=== PATIENT | male | born 1985 | race Caucasian/White ===

== ENCOUNTER 2017-10-18 08:49 | Emergency (ER) | payer OTHER ==
[~2017-10-18] VITALS: Ht 172.7 cm; Wt 94.3 kg
[~2017-10-18 08:49] MED LIST: BENTYL10 M1 PO; HYDROXYZINE HCL50 M1 PO; OMEPRAZOLE40 M1 PO; TRAMADOL HCL50 M1 PO
[2017-10-18 08:52] VITALS: BP 149/82
--- NOTE | 2017-10-18 09:21 | ED UPPER/LOWER EXTREMITY COMPL ---
History of Present Illness General Chief Complaint: Upper Extremity Problem Stated Complaint: PAIN IN BOTH SHOULDERS NO INJURY Source: patient Exam Limitations: no limitations Vital Signs & Intake/Output Vital Signs & Intake/Output Vital Signs Date Time Temp Pulse Resp B/P B/P Pulse O2 O2 Flow FiO2 Mean Ox Delivery Rate 10/18 0902 99 Room Air 10/18 0852 98.0 70 16 149/82 98 Room Air Allergies Coded Allergies: No Known Allergies (05/20/17) Reconcile Medications Dicyclomine Hydrochloride (Bentyl) 10 MG CAPSULE 1-2 CAP PO TID abd spasms Hydroxyzine Hydrochloride (Atarax) 50 MG TABLET 1 TAB PO TID PRN NAUSEA/ VOMITING (Reported) Meloxicam (Mobic) 15 MG TABLET 1 TAB PO DAILY PRN pain Methylprednisolone. (Medrol) 4 MG TAB.DS.PK 1 DP PO AD inflammation 6 on day 1 then reduce by one tablet daily until gone Omeprazole 40 MG CAPSULE.DR 1 CAP PO DAILY acid reflux Tramadol HCl 50 MG TABLET 1-2 TAB PO DAILY NEEDED PRN PAIN (Reported) Triage Note: PT COMPLAINS OF YEARS OF CHRONIC BILATERAL SHOULDER PAIN, HAS NO ORTHOPEDIC AND HAS BEEN TAKING ALEVE WITH NO RELIEF. PT STATES THAT THE PAIN IS STARTING TO GET WORSE AND THAT THERE IS NO COMFORTABLE POSITION . DECLINES MEDS AT TRIAGE Triage Nurses Notes Reviewed? yes Onset: Gradual Duration: week(s): Timing: recent history Severity: moderate Pain/Injury Location: Bilateral: Shoulder. Method of Injury: unknown HPI: 31yo male presents to ED complaining of chronic bilateral shoulder that has been present intermittently x many years. Left shoulder is worse than right. Pain is intermittent, lasts up to 8 hours, associated with weakness. Patient has taken Advil without relief. Pain is currently 6/10. This past month pain has progressively worsened. Patient reports numbness and tingling in left hand. No history of trauma or inciting event. Patient reports an onset of pain was sometime following left ulnar nerve release years ago. Past History Travel History Traveled to [place] past 21 day No Medical History Any Pertinent Medical History? 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 No Review of Systems Review of Systems Constitutional: Reports: no symptoms. EENTM: Reports: no symptoms. Respiratory: Reports: no symptoms. Cardiovascular: Reports: no symptoms. Gastrointestinal/Abdominal: Reports: no symptoms. Genitourinary: Reports: no symptoms. Musculoskeletal: Reports: see HPI. Skin: Reports: no symptoms. Neurological/Psychological: Reports: see HPI. Hematologic/Endocrine: Reports: no symptoms. Immunological: Reports: no symptoms. All Other Systems: Reviewed and Negative Physical Exam Physical Exam General Appearance: well developed/nourished, no apparent distress, alert, awake Head: atraumatic, normal appearance Eyes: Bilateral: normal appearance. Ears, Nose, Throat: hearing grossly normal Neck: normal inspection, supple, full range of motion, no midline tenderness Cardiovascular/Respiratory: no respiratory distress Peripheral Pulses: 2+ radial (R), 2+ radial (L) Back: normal inspection, normal range of motion, no vertebral tenderness, left trapezius muscle tenderness, left proximal paraspinal muscle tenderness Shoulder Left: normal range of motion, anterior and superior shoulder tenderness Shoulder Right: normal range of motion, normal inspection Elbow Left: normal range of motion, normal inspection Elbow Right: normal range of motion, normal inspection Hand Left: normal inspection, normal range of motion Hand Right: normal inspection, normal range of motion Neurologic/Tendon: normal sensation, normal motor functions, normal tendon functions Skin: intact, normal color, warm/dry Progress Differential Diagnosis: arterial insufficiency, cellulitis, contusion, DVT, fracture, septic arthritis, sprain, tendon injury, polymyositis, tendonitis Plan of Care: Orders Procedure Date/time Status HIGH SENSITIVITY CRP 10/18 957 Complete WESTERGREN SED RATE 10/18 957 Complete COMPREHENSIVE METABOLIC PANEL 10/18 957 Complete CREATINE PHOSPHOKINASE 10/18 957 Complete CBC WITHOUT DIFFERENTIAL 10/18 957 Complete Laboratory Tests 10/18/17 1005: Anion Gap 16, Estimated GFR > 60, BUN/Creatinine Ratio 11.1, Glucose 89, Calcium 9.9, Total Bilirubin 0.8, AST 44, ALT 62, Alkaline Phosphatase 62, Creatine Kinase 346 H, C-React Prot High Sens 1.9, Total Protein 8.6 H, Albumin 5.4 H, Globulin 3.2, Albumin/Globulin Ratio 1.7, CBC w Diff NO MAN DIFF REQ, RBC 5.58, MCV 83.3, MCH 28.7, MCHC 34.4, RDW 13.4, MPV 8.1, Gran % 58.4, Lymphocytes % 27.5, Monocytes % 7.4, Eosinophils % 6.4 H, Basophils % 0.3, Absolute Granulocytes 6.4, Absolute Lymphocytes 3.0, Absolute Monocytes 0.8 H, Absolute Eosinophils 0.7, Absolute Basophils 0, ESR Westergren 1 Patient with elevated CK, CRP and ESR within normal limits. There is suspicion for inflammatory muscle condition, possible myositis versus tendinitis. There is no bony tenderness to suggest bone abnormality or fracture. Patient was started on Medrol Dosepak and meloxicam for inflammation and pain. He was instructed to follow-up with primary care doctor for possible repeat labs to further assess CK. If necessary he can obtain referral for rheum versus orthopedic through primary care doctor. The patient agrees with this plan, no acute distress, patient sleeping and [place] while awaiting bloodwork results. The patient was discussed with Dr. Donaldson who agrees with this plan. Departure Departure Disposition: HOME OR SELF CARE Condition: Stable Clinical Impression Primary Impression: Muscle ache of extremity Secondary Impressions: Muscle inflammation Qualifiers: Myositis type: other type Myositis location: shoulder Laterality: left Qualified Code: M60.812 - Other myositis, left shoulder Referrals: Yevgeniy Gibson APRN (PCP/Family) Additional Instructions: Begin steroid pack today, take full steroid pack. Take meloxicam as prescribed as needed for pain and inflammation. Follow-up with your primary care doctor regarding your elevated CK until today which is a muscle enzyme was tested in your blood work. They may wish you to follow-up with a specialist such as a business analysis specialist or an orthopedic. Return to the emergency Department with any worsening symptoms or other concerns. Please note that there might be incidental findings in your evaluation that are unrelated to the current emergency department visit. Please notify your primary care doctor about this emergency department visit in order to obtain and review all of the testing performed so that these incidental findings can be monitored as needed. If you had an x-ray performed, please understand that some fractures may not be seen on the initial set of x-rays. If your symptoms persist you might need a repeat set of x-rays to check for such a fracture. If you had a laceration evaluated, please understand that foreign bodies such as glass or wood may not be visible to the naked eye or on plain x-rays. If the wound becomes red, swollen, increasingly more painful or if there is any drainage from the wound, please have it reevaluated by a physician for the possibility of a retained foreign body. If you're unable to follow up as outlined in the discharge instructions please return to the emergency department. Thank you for choosing the [facility] Emergency Department for your care. It was a pleasure to serve you today. Departure Forms: Customer Survey General Discharge Information Prescriptions: Current Visit Scripts Meloxicam (Mobic) 1 TAB PO DAILY PRN pain #15 TAB Methylprednisolone. (Medrol) 1 DP PO AD #1 DP 6 on day 1 then reduce by one tablet daily until gone
[2017-10-18 10:15] LABS: ABSOLUTE BASOPHIL COUNT 0 /CUMM (0.0-0.2); ABSOLUTE EOSINOPHIL COUNT 0.7 /CUMM (0.0-0.7); ABSOLUTE GRANULOCYTE CT 6.4 /CUMM (1.4-6.5); ABSOLUTE MONOCYTE COUNT 0.8 /CUMM (0.10-0.60); BASOPHIL % 0.3 % (0.0-2.0); EOSINOPHIL % 6.4 % (0-5); GRANULOCYTE % 58.4 % (42.2-75.2); HEMATOCRIT 46.5 % (42-52); MEAN CORPUSCULAR HGB 28.7 PG (27.0-31.0); MEAN CORPUSCULAR HGB CONC 34.4 G/DL (33.0-37.0); MEAN CORPUSCULAR VOLUME 83.3 FL (80.0-94.0); MEAN PLATELET VOLUME 8.1 FL (7.4-10.4); PLATELET COUNT 235 /CUMM (130-400); RBC DISTRIBUTION WIDTH 13.4 % (11.5-14.5); RED BLOOD CELL CT 5.58 /CUMM (4.70-6.10)
[2017-10-18] MEDS ORDERED: MOBIC15 M1 PO (11:35)
[2017-10-18] MEDS ORDERED: MEDROL4 M2 PO (11:35)
== END 2017-10-18 11:48 ==
LOC: ERH 08:49
PROVIDERS: Physician Assistant
DX: M60.812 Other myositis, left shoulder (principal); M25.512 Pain in left shoulder

== ENCOUNTER 2018-01-01 04:29 | Emergency (ER) | payer OTHER ==
[~2018-01-01] VITALS: Ht 172.7 cm; Wt 95.3 kg
[~2018-01-01 04:29] MED LIST changes: +MEDROL4 M2 PO; +MOBIC15 M1 PO
--- NOTE | 2018-01-01 04:43 | ED UPPER/LOWER EXTREMITY COMPL ---
History of Present Illness General Chief Complaint: Foot or Ankle Injury Stated Complaint: LT FOOT PAIN S/P WALKING DOGS AND FOOT ROLLED Source: patient Exam Limitations: no limitations Vital Signs & Intake/Output Vital Signs & Intake/Output Vital Signs Date Time Temp Pulse Resp B/P B/P Pulse O2 O2 Flow FiO2 Mean Ox Delivery Rate 01/01 0441 99 Room Air 01/01 0437 97.8 73 18 134/84 98 Room Air Allergies Coded Allergies: No Known Allergies (01/01/18) Reconcile Medications Ibuprofen 800 MG TABLET 1 TAB PO TID PRN pain Omeprazole 40 MG CAPSULE. 1 CAP PO DAILY acid reflux Triage Note: PT FROM HOME C/O BELOW LEFT ANKLE FOOT PAIN 05/02. PT STATES LAST NIGHT HE WAS WALKING HIS DOGS AND STEPPED OFF THE CURB WRONG, LANDING ODDLY ON HIS LEFT FOOT. 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 VSS. NO DISTRESS AT THIS TIME. PT DENIES SELF MEDICATING. Triage Nurses Notes Reviewed? yes Onset: Abrupt Duration: hour(s):, waxing and waning Severity: mild Pain/Injury Location: Left: Foot. Method of Injury: fall, "rolled" left ankle/foot Modifying Factors: Improves With: rest. Associated Symptoms: swelling HPI: 32 yo gentleman in prior good health presents with left foot/ankle pain. "I stepped off the curb while walking my dog around 9:30pm last night..... and rolled my ankle.... I still have pain on the side of my foot, just below my ankle.... 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 He is otherwise well. Past History Travel History Traveled to [place] past 21 day No Medical History Any Pertinent Medical History? 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 No Review of Systems Review of Systems Constitutional: Reports: no symptoms. EENTM: Reports: no symptoms. Respiratory: Reports: no symptoms. Cardiovascular: Reports: no symptoms. Gastrointestinal/Abdominal: Reports: no symptoms. Genitourinary: Reports: no symptoms. Musculoskeletal: Reports: no symptoms. Skin: Reports: no symptoms. Neurological/Psychological: Reports: no symptoms. Hematologic/Endocrine: Reports: no symptoms. Immunological: Reports: no symptoms. All Other Systems: Reviewed and Negative Physical Exam Physical Exam General Appearance: well developed/nourished, mild distress Head: atraumatic Eyes: Bilateral: normal appearance. Ears, Nose, Throat: normal pharynx, normal ENT inspection Neck: normal inspection, supple, full range of motion Cardiovascular/Respiratory: normal breath sounds, normal peripheral pulses, regular rate/rhythm Leg Left: lateral aspect of left foot with mild tenderness, mild swelling, no deformity. Progress Differential Diagnosis: fracture, sprain Plan of Care: Orders Procedure Date/time Status XRY-FOOT COMPLETE, LEFT 01/01 445 Active XRY-ANKLE 3 OR MORE VIEWS L 01/01 445 Active Diagnostic Imaging: Viewed by Me: Radiology Read. Discussed w/RAD: Radiology Read. Radiology Impression: PATIENT: KATHRYN SKAGGS PRESENT AGE: 32 PATIENT ACCOUNT NO: [id number] : 83 LOCATION: [facility] ORDERING PHYSICIAN: José Antonio Charles MD SERVICE DATE: 01/01/18 EXAM TYPE: RAD - XRY-ANKLE 3 OR MORE VIEWS L; XRY-FOOT COMPLETE, LEFT EXAMINATION: XR FOOT, LEFT XR ANKLE, LEFT CLINICAL INFORMATION: Pain after rolling ankle/foot COMPARISON: None TECHNIQUE: 3 views of the left ankle. 3 views of the left foot. FINDINGS: Left ankle: No fracture or dislocation. The ankle mortise is congruent. The soft tissues are unremarkable. No ankle joint effusion. Left foot: No fracture or dislocation. Alignment is anatomic. Joint spaces are maintained. The soft tissues are unremarkable. IMPRESSION: No acute fracture or malalignment involving the left foot or ankle. DICTATED BY: Marty Bruno MD DATE/TIME DICTATED:01/01/18530 PATTERN CLEANER: BOY DATE/TIME TRANSCRIBED:01/01/18530 CONFIDENTIAL, DO NOT COPY WITHOUT APPROPRIATE AUTHORIZATION. <Electronically signed in Other Vendor System> SIGNED BY: Marty Bruno MD 01/01/18 0535 Departure Departure Disposition: HOME OR SELF CARE Condition: Stable Clinical Impression Primary Impression: Sprain of left foot Referrals: Yevgeniy Gibson APRN (PCP/Family) Departure Forms: Customer Survey General Discharge Information Prescriptions: Current Visit Scripts Ibuprofen 1 TAB PO TID PRN pain #30 TAB Comments 01/01/18, 5:45am... negative xrays.... discussed with patient who declines crutches.... rx for ibuprofen sent to pharmacy.... pt given paty bandage for comfort.
--- NOTE | 2018-01-01 05:35 | RADIOLOGY REPORT ---
EXAMINATION: XR FOOT, LEFT XR ANKLE, LEFT CLINICAL INFORMATION: Pain after rolling ankle/foot COMPARISON: None TECHNIQUE: 3 views of the left ankle. 3 views of the left foot. FINDINGS: Left ankle: No fracture or dislocation. The ankle mortise is congruent. The soft tissues are unremarkable. No ankle joint effusion. Left foot: No fracture or dislocation. Alignment is anatomic. Joint spaces are maintained. The soft tissues are unremarkable. IMPRESSION: No acute fracture or malalignment involving the left foot or ankle.
[2018-01-01] MEDS ORDERED: IBUPROFEN800 M1 PO (05:43)
[2018-01-01 05:45] VITALS: BP 132/74
== END 2018-01-01 05:48 ==
LOC: ERH 04:29
DX: S93.602A Unspecified sprain of left foot, initial encounter (principal); X58.XXXA Exposure to other specified factors, initial encounter; Y93.K1 Activity, walking an animal; Y92.9 Unspecified place or not applicable
CPT/HCPCS: 73610-LT; 73630-LT

== ENCOUNTER 2018-01-10 21:39 | Emergency (ER) | payer OTHER ==
[~2018-01-10] VITALS: Ht 172.7 cm; Wt 95.3 kg
[~2018-01-10 21:39] MED LIST changes: +IBUPROFEN800 M1 PO
--- NOTE | 2018-01-10 22:03 | ED HEADACHE COMPLAINT ---
History of Present Illness General Chief Complaint: Headache Stated Complaint: PT IS HAVING A MIGRANIE HEADACHE Source: patient, old records Exam Limitations: no limitations Vital Signs & Intake/Output Vital Signs & Intake/Output Vital Signs Date Time Temp Pulse Resp B/P B/P Pulse O2 O2 Flow FiO2 Mean Ox Delivery Rate 01/11 0004 98.2 54 18 116/69 97 Room Air 01/10 2301 96 Room Air 01/10 2151 97.0 73 18 131/87 96 Room Air ED Intake and Output 01/11 0000 01/10 1200 Intake Total Output Total Balance Patient 210 lb Weight Weight Estimated Measurement Method Allergies Coded Allergies: No Known Allergies (01/01/18) Reconcile Medications No Known Home Medications Triage Note: RECEIVED 32 YO MALE WITH HX OF MIGRAINES, C/O MIGRAINE H/A ABOVE AND BEHIND R EYE X 2 DAYS WITH NAUSEA AND VOMITING. Triage Nurses Notes Reviewed? yes Onset: Gradual Duration: hour(s): Timing: yesterday Quality/Severity: achy, pressure Severity Numbers: 7 Head Injury Location: temporal HPI: 32yo male with hx of migranes presents to ED complaining of headache beginning yesterday. Patient states that yesterday he experienced visual aura which is classic for his migraines. He then started feeling an aching pressure to right temporal area described as constant, 7/10, associated with nausea and vomiting. Patient states that pain has been constant since yesterday which is what prompted him to come to the emergency department. Migraine feels similar in quality and severity to previous migraines however longer in duration. Patient states that in the past he has had head CT and MRI imaging which has been normal. Patient has only tried Tylenol so far for his pain which has not been effective. Patient denies fevers, abdominal pain, neck pain, head injury or trauma, loss of consciousness. (Khadijah Bonds) Past History Travel History Traveled to [place] past 21 day No Medical History Any Pertinent Medical History? 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 No (Khadijah Bonds) Review of Systems Review of Systems Constitutional: Reports: no symptoms. Eyes: Reports: see HPI. Ears, Nose, Throat, Mouth: Reports: no symptoms. Respiratory: Reports: no symptoms. Cardiovascular: Reports: no symptoms. Gastrointestinal/Abdominal: Reports: see HPI. Genitourinary: Reports: no symptoms. Musculoskeletal: Reports: no symptoms. Skin: Reports: no symptoms. Neurological/Psychological: Reports: see HPI. Hematologic/Endocrine: Reports: no symptoms. Endocrine: Reports: no symptoms. Immunologic/Allergic: Reports: no symptoms. All Other Systems: Reviewed and Negative (Khadijah Bonds) Physical Exam Physical Exam General Appearance: well developed/nourished, no apparent distress, alert, awake Head: atraumatic, normal appearance Eyes: Bilateral: normal appearance, PERRL, EOMI. Ears, Nose, Throat: normal pharynx, hearing grossly normal Neck: normal inspection, supple, full range of motion Respiratory: normal breath sounds, no respiratory distress, lungs clear Cardiovascular: regular rate/rhythm Back: normal inspection, normal range of motion Extremities: normal inspection, normal range of motion Psychiatric: awake, alert, oriented x 3 Cranial Nerves: normal hearing, normal speech, PERRL, CN II- XII intact Coordination/Gait: normal finger to nose, normal gait Motor/Sensory: no motor/sensory deficits Skin: intact, normal color, warm/dry Core Measures Sepsis Present: No Sepsis Focused Exam Completed? No (Khadijah Bonds) Progress Differential Diagnosis: cluster TOMAS, encephalitis, IC mass/tumor, intracranial Hem., migraine TOMAS, musculoskeletal pain, subarach. Hem., tension TOMAS, temporal arteritis Plan of Care: Patient has a history of migraines and is reporting a headache that is similar to his previous headaches. Patient is neurologically intact, answering questions readily, no acute distress. His vital signs are stable, he is afebrile. Patient was suspicion for acute intracranial pathology at this time. Patient agrees with plan for observation over CT imaging based on his current symptoms. He has had normal CT and MRI had imaging in the past. Patient medicated with IV Reglan, Toradol, Benadryl. Patient seen sleeping comfortably in stretcher following medication administration. 2 hours following medication administration patient is still sleeping and stretcher. Upon waking up he reports significant improvement in headache more comfortable waiting in the emergency department for the time being. Patient declines further medication as he states his symptoms have greatly improved. The patient was signed out to Dr. Strange pending pain management and discharge. Hand-Off Endorsed To: Chilo Strange DO Endorsed Time: 41 Pending: other (pain mgmt) (Khadijah Bonds) Departure Departure Disposition: HOME OR SELF CARE Condition: Stable Clinical Impression Primary Impression: Headache Qualifiers: Headache type: unspecified Headache chronicity pattern: acute headache Intractability: not intractable Qualified Code: R51 - Headache Referrals: Yevgeniy Gibson APRN (PCP/Family) Additional Instructions: Follow-up with your primary care physician. Return with worsening symptoms or concerns. Please go over all results of today's visit with your primary care doctor. Contact your primary care doctor to let them know you were here in the emergency room. There may be nonspecific findings which may not be related to your visit today here in the emergency room but may require further evaluation and chronic monitoring by your primary care doctor. If you had a laceration today the chance of foreign body always remains. You should follow-up with your primary care doctor for recheck in 3-5 days for a wound check. If you had an x-ray done there is a chance that a fracture could have been missed on initial read and you should follow-up with your primary care doctor for repeat x-rays if symptoms persist. If your blood pressure was elevated here in the emergency room please have rechecked by [facility] primary care doctor within the next 48. If you were prescribed a narcotic here in the emergency room or any type of controlled substances you're not allowed to drive while taking this medication or operate any type of heavy machinery. Narcotics can make you feel lightheaded dizziness nausea and can cause constipation. You may need to tow picker a stool softener. Thank you for choosing [facility] emergency room. Please return to the emergency room immediately if you have any other concerns worsening of symptoms. Departure Forms: Customer Survey General Discharge Information Prescriptions: Current Visit Scripts No Known Home Medications (Khadijah Bonds) Departure Comments 01/11/18 2 AM Patient is awake alert oriented 3. He has no complaints. Headache is much improved. He was signed out to me by Gretel Martínez. (Chilo Strange DO)
[2018-01-11 00:04] VITALS: BP 116/69
== END 2018-01-11 01:50 ==
LOC: ERH 21:39
DX: R51 Headache (principal)
CPT/HCPCS: 96374; 96375; J1200; J1885; J2765

== ENCOUNTER 2018-05-17 09:15 | Emergency (ER) | payer OTHER ==
[~2018-05-17] VITALS: Ht 203.2 cm; Wt 82.6 kg
[2018-05-17 09:20] VITALS: BP 136/87
--- NOTE | 2018-05-17 09:22 | ED ANKLE/FOOT INJURY COMPLAINT ---
History of Present Illness General Chief Complaint: Foot or Ankle Injury Stated Complaint: LFT TOE INJURY Source: patient Exam Limitations: no limitations Vital Signs & Intake/Output Vital Signs & Intake/Output Vital Signs Date Time Temp Pulse Resp B/P B/P Pulse O2 O2 Flow FiO2 Mean Ox Delivery Rate 05/17 0920 98.1 55 16 136/87 99 Room Air Allergies Coded Allergies: No Known Allergies (01/01/18) Reconcile Medications Cephalexin (Keflex) 500 MG CAPSULE 1 CAP PO TID cellulitis Triage Note: 32M REPORTS WORSENING PAIN, SWELLING, HEAT AND REDNESS TO LEFT MIDDLE TOE SINCE SATURDAY. NO KNOWN CAUSE OF INJURY OR KNOWN TRAUMA. STATES IT IS NOW STARTING TO IMPACT HIS GAIT. Triage Nurses Notes Reviewed? yes Duration: day(s): Timing: recent history Severity: moderate Pain/Injury Location: Left: 3rd toe. Method of Injury: unknown HPI: 32yo male presents to ED complaining of pain and redness of left third toe 4 days. 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 He has had increasing pain and redness to the third toe and is unsure if he injured the toe while at work. That pain is increasing and bothersome while he is at work. (Khadijah Bonds) Past History Travel History Traveled to [place] past 21 day No Medical History Any Pertinent Medical History? see below for history Neurological: migraine EENT: NONE Cardiovascular: NONE Respiratory: NONE Gastrointestinal: GERD Hepatic: NONE Renal: NONE Musculoskeletal: NONE Psychiatric: NONE Endocrine: NONE Blood Disorders: NONE Cancer(s): NONE PR INTERNSHIP/Reproductive: NONE Surgical History Surgical History: none Psychosocial History What is your primary language Persian Tobacco Use: Current Daily Use Daily Tobacco Use Amount/Type: => 5 Cigarettes daily ETOH Use: occasional use Illicit Drug Use: marijuana Family History Hx Contributory? No (Khadijah Bonds) Review of Systems Review of Systems Constitutional: Reports: no symptoms. EENTM: Reports: no symptoms. Respiratory: Reports: no symptoms. Cardiovascular: Reports: no symptoms. GI: Reports: no symptoms. Genitourinary: Reports: no symptoms. Musculoskeletal: Reports: see HPI. Skin: Reports: see HPI. Neurological/Psychological: Reports: no symptoms. Hematologic/Endocrine: Reports: no symptoms. Immunologic/Allergic: Reports: no symptoms. All Other Systems: Reviewed and Negative (Tanya PA,Khadijah Majano) Physical Exam Physical Exam General Appearance: well developed/nourished, no apparent distress, alert, awake Head: atraumatic, normal appearance Eyes: Bilateral: normal appearance. Ears, Nose, Throat: hearing grossly normal Neck: normal inspection, supple, full range of motion Cardiovascular/Respiratory: normal peripheral pulses, no respiratory distress Back: normal inspection, normal range of motion Leg/Knee/Thigh Left: normal range of motion, normal inspection Leg/Knee/Thigh Right: normal range of motion, normal inspection Ankle Left: normal inspection, normal range of motion Ankle Right: normal inspection, normal range of motion Foot Left: ERYTHEMA, WARMTH, SWELLING, AND TENDERNESS TO DISTAL MIDDLE TOE, NO FLUCTUANCE OR PURULENCE Foot Right: normal inspection, normal range of motion Neuro/Vascular: normal motor function Tendon: normal tendon function Psychiatric: awake, alert, oriented x 3 Skin: ERYTHEMA MENTIONED ABOVE (Tanya VEE,Khadijah Majano) Progress Differential Diagnosis: cellulitis, gout, fracture, sprain, PARONYCHIA Plan of Care: Orders Procedure Date/time Status XRY-TOES, LEFT 05/17 930 Active Skin findings are consistent with cellulitis. No paronychia detected at this time on exam, no I&D required today. Patient to begin antibiotics and salt soaks. He has an appointment with his primary care doctor on Saturday for reevaluation. Patient agrees with plan of care. Diagnostic Imaging: Viewed by Me: Radiology Read. Discussed w/RAD: Radiology Read. Radiology Impression: PATIENT: KATHRYN SKAGGS PRESENT AGE: 32 PATIENT ACCOUNT NO: [id number] : 83 LOCATION: [facility] ORDERING PHYSICIAN: Khadijah VEE SERVICE DATE: 05/17/18 EXAM TYPE: RAD - XRY-TOES, LEFT 3 VIEWS OF THE LEFT THIRD DIGIT CLINICAL INFORMATION: Toe injury with redness. COMPARISON: Left foot radiographs 01/01/2018. FINDINGS: There is soft tissue swelling involving the third digit distally. No fractures. The bony articulations are maintained. No radiopaque foreign bodies. Tarsometatarsal alignment is normal. IMPRESSION: No acute osseous findings. Soft tissue swelling involving the distal third digit. DICTATED BY: Chilo Glez MD DATE/TIME DICTATED:05/17/181034 SAP MOBILITY ARCHITECT:BOY DATE/TIME TRANSCRIBED:05/17/181034 CONFIDENTIAL, DO NOT COPY WITHOUT APPROPRIATE AUTHORIZATION. <Electronically signed in Other Vendor System> SIGNED BY: Chilo Glez MD 05/17/18 1041 (Khadijah Bonds) Departure Departure Disposition: HOME OR SELF CARE Condition: Stable Clinical Impression Primary Impression: Cellulitis Referrals: Yevgeniy Gibson APRN (PCP/Family) Additional Instructions: Begin antibiotics as prescribed. Begin warm Epson salt soaks twice daily. Follow up with your primary care doctor on Saturday for reevaluation. This area may require drainage if infection increases. Return if worsening symptoms or concerns. Please note that there might be incidental findings in your evaluation that are unrelated to the current emergency department visit. Please notify your primary care doctor about this emergency department visit in order to obtain and review all of the testing performed so that these incidental findings can be monitored as needed. If you had an x-ray performed, please understand that some fractures may not be seen on the initial set of x-rays. If your symptoms persist you might need a repeat set of x-rays to check for such a fracture. If you had a laceration evaluated, please understand that foreign bodies such as glass or wood may not be visible to the naked eye or on plain x-rays. If the wound becomes red, swollen, increasingly more painful or if there is any drainage from the wound, please have it reevaluated by a physician for the possibility of a retained foreign body. If you're unable to follow up as outlined in the discharge instructions please return to the emergency department. Thank you for choosing the [facility] Emergency Department for your care. It was a pleasure to serve you today. Departure Forms: Customer Survey General Discharge Information Prescriptions: Current Visit Scripts Cephalexin (Keflex) 1 CAP PO TID #21 CAP (Khadijah Bonds) PA/SHAKE CUTTER Co-Sign Statement Statement: ED Attending supervision documentation- [] I saw and evaluated the patient. I have also reviewed all the pertinent lab results and diagnostic results. I agree with the findings and the plan of care as documented in the PA's/SHAKE CUTTER's documentation. [X] I have reviewed the ED Record and agree with the PA's/SHAKE CUTTER's documentation. [] Additions or exceptions (if any) to the PAs/SHAKE CUTTER's note and plan are summarized below: [] (Chilo Strange DO)
[2018-05-17] MEDS ORDERED: KEFLEX500 M1 PO (09:35)
--- NOTE | 2018-05-17 10:41 | RADIOLOGY REPORT ---
3 VIEWS OF THE LEFT THIRD DIGIT CLINICAL INFORMATION: Toe injury with redness. COMPARISON: Left foot radiographs 01/01/2018. FINDINGS: There is soft tissue swelling involving the third digit distally. No fractures. The bony articulations are maintained. No radiopaque foreign bodies. Tarsometatarsal alignment is normal. IMPRESSION: No acute osseous findings. Soft tissue swelling involving the distal third digit.
== END 2018-05-17 10:51 ==
LOC: ERH 09:15
DX: L03.032 Cellulitis of left toe (principal)
CPT/HCPCS: 73660-LT

== ENCOUNTER 2018-05-19 05:10 | Emergency (ER) | payer OTHER ==
[~2018-05-19 05:10] MED LIST changes: +KEFLEX500 M1 PO
--- NOTE | 2018-05-19 05:19 | ED GI/GU/ABDOMINAL COMPLAINT ---
History of Present Illness General Chief Complaint: Abdominal Pain/Flank Pain Stated Complaint: R ABD PAIN Source: patient Exam Limitations: no limitations Vital Signs & Intake/Output Vital Signs & Intake/Output Vital Signs Date Time Temp Pulse Resp B/P B/P Pulse O2 O2 Flow FiO2 Mean Ox Delivery Rate 05/19 0657 97.9 50 18 128/71 98 Room Air 05/19 0516 98.0 56 22 132/86 99 Allergies Coded Allergies: No Known Allergies (01/01/18) Reconcile Medications Cephalexin (Keflex) 500 MG CAPSULE 1 CAP PO TID cellulitis Ibuprofen 800 MG TABLET 1 TAB PO TID PRN pain Ondansetron (Zofran Odt) 4 MG TAB.RAPDIS 1 TAB SL TID PRN nausea Oxycodone HCl/Acetaminophen (Percocet 5-325 MG Tablet) 5 MG-325 MG TABLET 1 TAB PO 4XDP PRN PAIN six...[id number] Tamsulosin HCl (Flomax) 0.4 MG CAP.ER.24H 1 CAP PO DAILY kidney stones Triage Note: PER PT STARTED WITH RUQ ABD PAIN WITH RADIATION TO GROIN ? KIDNEY STONE SL NAUSEA NO VOMITING Triage Nurses Notes Reviewed? yes Onset: Gradual Duration: hour(s): Timing: recent history Location: right flank Radiation: no radiation Activities at Onset: none Prior Abdominal Problems: similar symptoms Modifying Factors: Worsens With: vomiting. Associated Symptoms: abdominal pain HPI: 32YO gentleman h/o kidney stones presents with right flank pain, intermittent, waxing and waning, that began last night, that progressed early this AM, without fever, chills, dyspnea, chest pain. He is otherwise well. "I thnk it's a kidney stone," he states. Past History Travel History Traveled to [place] past 21 day No Medical History Any Pertinent Medical History? 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 No Review of Systems Review of Systems Constitutional: Reports: no symptoms. EENTM: Reports: no symptoms. Respiratory: Reports: no symptoms. Cardiovascular: Reports: no symptoms. GI: Reports: no symptoms. Genitourinary: Reports: no symptoms. Musculoskeletal: Reports: no symptoms. Skin: Reports: no symptoms. Neurological/Psychological: Reports: no symptoms. Hematologic/Endocrine: Reports: no symptoms. Immunologic/Allergic: Reports: no symptoms. All Other Systems: Reviewed and Negative Physical Exam Physical Exam Gastrointestinal: normal bowel sounds, soft, non-tender Comments: Physical Exam Physical Exam General Appearance: well developed/nourished, no apparent distress Head: atraumatic, normal appearance Eyes: Bilateral: normal appearance. Ears, Nose, Throat: normal pharynx, normal ENT inspection Neck: normal inspection, supple, full range of motion Respiratory: normal breath sounds, chest non-tender, no respiratory distress, quiet respiration, lungs clear Cardiovascular: regular rate/rhythm Gastrointestinal: normal bowel sounds, soft, non-tender, no organomegaly Back: normal inspection, normal range of motion Extremities: normal inspection, normal capillary refill, normal range of motion, no edema Neurologic/Psych: no motor/sensory deficits, awake, alert, oriented x 3 Skin: intact, normal color, warm/dry Core Measures ACS in differential dx? No Sepsis Present: No Sepsis Focused Exam Completed? No Progress Differential Diagnosis: AAA, biliary colic, gastritis, hepatitis, vs other Plan of Care: Orders Procedure Date/time Status URINALYSIS 05/19 520 Complete LIPASE 05/19 520 Complete LACTIC ACID 05/19 520 Complete HEPATIC FUNCTION PANEL 05/19 520 Complete CBC WITHOUT DIFFERENTIAL 05/19 520 Complete BASIC METABOLIC PANEL 05/19 520 Complete AMYLASE 05/19 520 Complete EKG 05/19 520 Active Laboratory Tests 05/19/18 0638: Urine Color STRAW, Urine Clarity CLEAR, Urine pH 6.5, Ur Specific [place] <= 1.005, Urine Protein NEG, Urine Ketones NEG, Urine Nitrite NEG, Urine Bilirubin NEG, Urine Urobilinogen 0.2, Ur Leukocyte Esterase NEG, Ur Microscopic SEDIMENT EXAMINED, Urine RBC 1-3, Urine WBC RARE, Ur Epithelial Cells OCCAS, Urine Hemoglobin SMALL H, Urine Glucose NEG 05/19/18 0530: Anion Gap 8, Estimated GFR > 60, BUN/Creatinine Ratio 14.4, Glucose 114 H, Lactic Acid 0.9, Calcium 9.0, Total Bilirubin 0.7, Direct Bilirubin 0.2, AST 32, ALT 42, Alkaline Phosphatase 50, Total Protein 7.1, Albumin 4.4, Amylase 54, Lipase 134, CBC w Diff NO MAN DIFF REQ, RBC 5.22, MCV 84.3, MCH 28.8, MCHC 34.1, RDW 13.5, MPV 8.5, Gran % 55.1, Lymphocytes % 30.2, Monocytes % 8.4, Eosinophils % 6.0 H, Basophils % 0.3, Absolute Granulocytes 4.8, Absolute Lymphocytes 2.6, Absolute Monocytes 0.7 H, Absolute Eosinophils 0.5, Absolute Basophils 0 Diagnostic Imaging: Viewed by Me: CT Scan. Discussed w/RAD: CT Scan. Radiology Impression: PATIENT: KATHRYN SKAGGS PRESENT AGE: 32 PATIENT ACCOUNT NO: [id number] : 83 LOCATION: [facility] ORDERING PHYSICIAN: José Antonio Charles MD SERVICE DATE: 05/19/18 EXAM TYPE: CAT - CT ABD & PELVIS W/O IV CONTRAS EXAMINATION: CT ABDOMEN AND PELVIS WITHOUT CONTRAST CLINICAL INFORMATION: Right lower quadrant pain COMPARISON: 05/20/2017 TECHNIQUE: Multidetector volumetric imaging was performed from the superior aspect of the liver through the pubic symphysis. Sagittal and coronal reformatted images were obtained on the technologist's workstation. DLP: 375.48 mGy-cm FINDINGS: LUNG BASES: The visualized lung bases are unremarkable. LIVER, GALLBLADDER, AND BILIARY TREE: The liver is normal in size, shape, and attenuation. A subcentimeter hypoattenuating focus adjacent to the falciform ligament is too small to characterize. No biliary ductal dilatation is present. The gallbladder is unremarkable with no evidence of radiopaque gallstones, gallbladder wall thickening, or obvious pericholecystic inflammatory changes. PANCREAS: Unremarkable. SPLEEN: Unremarkable. ADRENAL GLANDS: Unremarkable. KIDNEYS AND URETERS: There is a 2 mm calculus at the right ureterovesicular junction with mild hydronephrosis. There are tiny calculi in the mid and upper right kidney measuring up to 3 mm. There is a punctate calculus in the lower left kidney without hydronephrosis. BLADDER: Unremarkable. GASTROINTESTINAL TRACT: No evidence of bowel obstruction. Assessment for wall thickening in some segments of the colon is limited due to luminal collapse, though no significant pericolonic stranding is seen to strongly suggest a colitis. The appendix is unremarkable. No free fluid or free air is seen. ABDOMINAL WALL: No significant hernia is appreciated. LYMPH NODES: Normal. VASCULAR: Unremarkable. PELVIC VISCERA: Unremarkable. OSSEOUS STRUCTURES: Unremarkable. IMPRESSION: Right ureterovesicular junction calculus measuring 2 mm with mild hydronephrosis. Additional tiny bilateral renal calculi. DICTATED BY: Rashaun De La Torre MD DATE/ TIME DICTATED:05/19/18612 ASSISTANT INVENTORY MANAGER:BOY DATE/TIME TRANSCRIBED: 05/19/18612 CONFIDENTIAL, DO NOT COPY WITHOUT APPROPRIATE AUTHORIZATION. < Electronically signed in Other Vendor System> SIGNED BY: Rashaun De La Torre MD 05/19/18622 Initial ED EKG: sinus, no acute changes Departure Departure Disposition: HOME OR SELF CARE Condition: Stable Clinical Impression Primary Impression: Renal colic on right side Referrals: Yevgeniy Gibson APRN (PCP/Family) Departure Forms: Customer Survey General Discharge Information Prescriptions: Current Visit Scripts Ibuprofen 1 TAB PO TID PRN pain #30 TAB Ondansetron (Zofran Odt) 1 TAB SL TID PRN nausea #10 TAB Tamsulosin HCl (Flomax) 1 CAP PO DAILY #10 CAP Oxycodone HCl/Acetaminophen (Percocet 5-325 MG Tablet) 1 TAB PO 4XDP PRN PAIN #6 TAB six...[id number] Comments 05/19/18, 6:50am... pt feeling better... discussed results... pt referred to urology.
[2018-05-19 05:34] LABS: ABSOLUTE BASOPHIL COUNT 0 /CUMM (0.0-0.2); ABSOLUTE EOSINOPHIL COUNT 0.5 /CUMM (0.0-0.7); ABSOLUTE GRANULOCYTE CT 4.8 /CUMM (1.4-6.5); ABSOLUTE LYMPH COUNT 2.6 /CUMM (1.2-3.4); ABSOLUTE MONOCYTE COUNT 0.7 /CUMM (0.10-0.60); BASOPHIL % 0.3 % (0.0-2.0); GRANULOCYTE % 55.1 % (42.2-75.2); MEAN CORPUSCULAR HGB 28.8 PG (27.0-31.0); MEAN CORPUSCULAR HGB CONC 34.1 G/DL (33.0-37.0); MEAN CORPUSCULAR VOLUME 84.3 FL (80.0-94.0); MEAN PLATELET VOLUME 8.5 FL (7.4-10.4); PLATELET COUNT 205 /CUMM (130-400); RBC DISTRIBUTION WIDTH 13.5 % (11.5-14.5); RED BLOOD CELL CT 5.22 /CUMM (4.70-6.10); WHITE BLOOD CELL COUNT 8.8 /CUMM (4.8-10.8)
--- NOTE | 2018-05-19 06:23 | CT SCAN REPORT ---
EXAMINATION: CT ABDOMEN AND PELVIS WITHOUT CONTRAST CLINICAL INFORMATION: Right lower quadrant pain COMPARISON: 05/20/2017 TECHNIQUE: Multidetector volumetric imaging was performed from the superior aspect of the liver through the pubic symphysis. Sagittal and coronal reformatted images were obtained on the technologist's workstation. DLP: 375.48 mGy-cm FINDINGS: LUNG BASES: The visualized lung bases are unremarkable. LIVER, GALLBLADDER, AND BILIARY TREE: The liver is normal in size, shape, and attenuation. A subcentimeter hypoattenuating focus adjacent to the falciform ligament is too small to characterize. No biliary ductal dilatation is present. The gallbladder is unremarkable with no evidence of radiopaque gallstones, gallbladder wall thickening, or obvious pericholecystic inflammatory changes. PANCREAS: Unremarkable. SPLEEN: Unremarkable. ADRENAL GLANDS: Unremarkable. KIDNEYS AND URETERS: There is a 2 mm calculus at the right ureterovesicular junction with mild hydronephrosis. There are tiny calculi in the mid and upper right kidney measuring up to 3 mm. There is a punctate calculus in the lower left kidney without hydronephrosis. BLADDER: Unremarkable. GASTROINTESTINAL TRACT: No evidence of bowel obstruction. Assessment for wall thickening in some segments of the colon is limited due to luminal collapse, though no significant pericolonic stranding is seen to strongly suggest a colitis. The appendix is unremarkable. No free fluid or free air is seen. ABDOMINAL WALL: No significant hernia is appreciated. LYMPH NODES: Normal. VASCULAR: Unremarkable. PELVIC VISCERA: Unremarkable. OSSEOUS STRUCTURES: Unremarkable. IMPRESSION: Right ureterovesicular junction calculus measuring 2 mm with mild hydronephrosis. Additional tiny bilateral renal calculi.
[2018-05-19] MEDS ORDERED: IBUPROFEN800 M1 PO (06:43)
[2018-05-19] MEDS ORDERED: ZOFRAN ODT4 M1 SL (06:43)
[2018-05-19] MEDS ORDERED: FLOMAX0.4 M1 PO (06:43)
[2018-05-19] MEDS ORDERED: PERCOCET 5-3251 EACH PO (06:43)
[2018-05-19 06:57] VITALS: BP 128/71
== END 2018-05-19 07:04 ==
LOC: ERH 05:10
PROVIDERS: Pediatrics
DX: N23 Unspecified renal colic (principal)
CPT/HCPCS: 74176; 81001; 96361; 96374; 96375; J1885; J2405